=== PATIENT | female | born 1980 | race Caucasian/White ===

== ENCOUNTER 2017-04-11 13:10 | Emergency (ER) | payer MEDICAID ==
[2017-04-11] MEDS: IBUPROFEN 600 MG TAB PO (14:31)
== END 2017-04-11 15:46 | disposition home or self-care (01) ==
LOC: FTE 13:10
DX: M77.8 Other enthesopathies, not elsewhere classified (principal)
CPT/HCPCS: 29125; 73110-LT; 99283-25